=== PATIENT | male | born 1950 | race Caucasian/White ===

== ENCOUNTER → 2022-07-03 | Outpatient (CLI) | payer OTHER ==
--- NOTE | 2022-07-04 11:03 | MR ---
EXAMINATION TYPE: MR shoulder RT wo con DATE OF EXAM: 07/03/2022 COMPARISON: None HISTORY: Rt shoulder pain, Lifting with popping in shoulder last summer TECHNIQUE: Multiplanar, multisequence imaging of the right shoulder is performed without contrast. FINDINGS: There is severe hypertrophic arthropathy of the AC joint which results in impingement of th e supraspinatus tendon and muscle. There is cystic changes involving the glenoid with degenerative marrow changes. There appears to be l oss of articular cartilage along the glenoid component of the joint space and there is arthropathy of the inferior Grossly the glenohumeral ligament glenohumeral joint. There also appears to be a deform ity which appears chronic of the glenoid and superior humeral head correlate for prior Bankart lesion \Hill-Sachs deformity respectively and history of shoulder dislocation.. There is diffuse abnormal signal involving the superior labrum suspicious for SLAP tear. Abnormal sig nal extends into the biceps anchor. The bicipital tendon is well situated in the bicipital groove.. Suprascapular notch is a normal appea nik. Subscapularis tendon appears to be intact. Mild intrasubstance signal seen at the humeral attachment is suggestive of a tiny area of focal tendinosis. Supraspinatus and infraspinatus tendon demonstrates mild thickening and increased signal. There is i ntrasubstance undersurface signal seen overlying both the supraspinatus and infraspinatus tendon pura uring compatible with tendinopathy and intrasubstance tear.. IMPRESSION: 1. Severe AC joint arthropathy with impingement of the supraspinatus tendon and muscle. 2. Thickening and intrasubstance signal involving the distal margins of the supraspinatus and infrasp inatus tendons compatible with tendinopathy and intrasubstance tear. No through thickness tear or ret raction identified. 3. Findings are suggestive of a SLAP tear with abnormal signal extending into the biceps anchor corre late clinically. 4. Glenohumeral joint arthropathy with cystic changes and reactive marrow changes involving the gleno id. Subtle deformities of the glenoid and flattening of the humeral head suggest possibility of previ ous Hill-Sachs deformity and Bankart lesion. Correlate with history for prior shoulder dislocation. 5. Mild intrasubstance signal and thickening of the subscapularis insertion compatible with tendinopa thy
== END | disposition home or self-care (01) ==
LOC: RADMRIMAIN 14:29
PROVIDERS: ATTEND Physician Assistant
DX: M19.011 Primary osteoarthritis, right shoulder (principal); M25.811 Other specified joint disorders, right shoulder; M67.813 Other specified disorders of tendon, right shoulder

== ENCOUNTER 2022-08-22 07:33 | Day surgery (SDC) | payer OTHER ==
--- NOTE | 2022-08-21 08:19 | P.HPOR ---
History of Present Illness H&P Date: 08/21/22 Chief Complaint: Right shoulder pain The patient is a 71-year-old [id number] retired gentleman who presents with right shoulder pain that began a year ago after an injury. He is lifting a tire over his head when he felt a pop. He has had constant pain since. He's tried medications along with activity modifications with persistence of his symptoms. Review of Systems Negative except as in HPI Past Medical History Past Medical History: Diabetes Mellitus, Hyperlipidemia, Hypertension Medications and Allergies Home Medications and Allergies Comment(s): Metformin, aspirin, atorvastatin, lisinopril Physical Examination - Shoulder right Tenderness with palpation: anterior Pain: with abduction, with forward flexion ROM: forward flexion: 100 degrees (Actively and passively) ROM: internal rotation: lower lumbar ROM: external rotation: 30 degrees Crepitus with motion: Yes Strength: abduction: 4/5 Strength: external rotation: 5/5 Tests: internal impingement tests: positive, external impingment tests: positive Results The patient is well-developed well-nourished male approximately 5 foot 8, 163 pounds of mesomorphic habitus. HEENT exam is nonfocal, neck is supple. He's tender about the right shoulder anterior subacromial space. He has limited passive range of motion. Impingement, Neer tests are positive. His distal neurovascular appears intact in the right upper extremity. - Diagnostic results Shoulder MRI: image reviewed (MRI of the right shoulder shows evidence of rotator cuff tendinopathy along with a possible SLAP tear and Hill-Sachs lesion. Acromioclavicular joint arthritis is noted.) Assessment and Plan Assessment: Right shoulder impingement/rotator cuff tendinopathy Right proximal bicipital tendinosis/possible SLAP tear Right acromioclavicular joint arthritis Right shoulder adhesive capsulitis Plan: I talked to the patient with regarding his condition along with treatment options. This point he has is quite symptomatic despite attempted conservative measures. After thorough discussion of procedure surgery. We'll proceed with arthroscopic evaluation the right shoulder with probable subacromial de compression, rotator cuff debridement, possible biceps tenotomy along with manipulation under anesthesia. We will likely perform as an outpatient procedure. Risks and benefits were discussed at length in layman's terms. Patient underwent preoperative medical clearance.
[2022-08-21 10:06] VITALS: BMI 26.3
[2022-08-22] MEDS ORDERED: ONDANSETRON 4 MG/2 ML VIAL ONE (07:42)
[2022-08-22] MEDS ORDERED: LACTATED RINGERS 1,000 ML IV ONE ×2 (07:59→11:57)
[2022-08-22] MEDS ORDERED: DEXAMETHASONE SOD PHOSPHATE 4 MG/ML 1 ML VIAL IVP ONE (08:00)
[2022-08-22 08:26] LABS: Glucose,Whole Blood 103 mg/dL (70-110)
[2022-08-22] MEDS ORDERED: MIDAZOLAM 2 MG/2 ML VIAL IVP ONE (09:02)
[2022-08-22] MEDS ORDERED: fentaNYL (PF) 50 MCG/ML 2 ML AMP IVP ONE (09:02)
[2022-08-22] MEDS ORDERED: NEOSTIGMINE 1 MG/ML 10 ML VIAL ONE (09:43)
[2022-08-22] MEDS ORDERED: MIDAZOLAM 2 MG/2 ML VIAL ONE (09:43)
[2022-08-22] MEDS ORDERED: ePHEDrine 50 MG/ML 1 ML VIAL ONE (09:43)
[2022-08-22] MEDS ORDERED: fentaNYL (PF) 50 MCG/ML 2 ML AMP ONE (09:43)
[2022-08-22] MEDS ORDERED: GLYCOPYRROLATE 0.2 MG/ML 2 ML VIAL ONE (09:43)
[2022-08-22] MEDS ORDERED: PROPOFOL 10 MG/ML 20 ML VIAL IV ONE (09:43)
[2022-08-22] MEDS ORDERED: ROPIVACAINE 5 MG/ML 30 ML VIAL ONE (09:43)
[2022-08-22] MEDS ORDERED: PHENYLEPHRINE-0.9% NACL SYG 1,000 MCG/10 ML SYRINGE ONE (09:43)
[2022-08-22] MEDS ORDERED: ROCURONIUM 10 MG/ML (5 ML VIAL) IV ONE (09:43)
[2022-08-22] MEDS ORDERED: SUCCINYLCHOLINE CHLORIDE 200 MG/10 ML VIAL IV ONE (09:43)
[2022-08-22] MEDS ORDERED: LIDOCAINE 2% INJ 20 MG/ML (2 ML VIAL) ONE (09:43)
[2022-08-22] MEDS ORDERED: EPINEPHrine (PF) 1 ML in SODIUM CHLORIDE 0.9% IRRIGATIO 3,000 ML IRRIGATION ONE ×8 (10:17)
--- NOTE | 2022-08-22 10:40 | P.ANPRN ---
Procedure Note - Anesthesia - Nerve Block Performed Right Interscalene Single Time Out Performed: Yes (900) Date of Procedure: 08/22/22 Procedure Start Time: Procedure Stop Time: Location of Patient: PreOp Indication: Acute Post-Operative Pain, Requested by Surgeon Specifically requested for management of pain by : Kingsley Kennedy Sedation Type: Sedate with meaningful contact maintained Preparation: Sterile Prep Position: Supine Catheter: None Needle Types: Pajunk Needle Gauge: 21 Ultrasound used to visualize needle placement: Yes Ultrasound used to observe medication spread: Yes Injectate: 0.5% Ropivacaine (see comment for volume) (30cc) Blood Aspirated: No Pain Paresthesia on Injection Noted: No Resistance on Injection: Normal Image Stored and Saved: Yes Events: Uneventful and Well Tolerated
--- NOTE | 2022-08-22 10:56 | P.OP ---
Date of Procedure: 08/22/22 Preoperative Diagnosis: Right shoulder impingement/adhesive capsulitis/partial thickness rotator cuff tear Postoperative Diagnosis: Same in addition to synovitis right shoulder, acromioclavicular joint arthritis Procedure(s) Performed: Right shoulder arthroscopic subacromial decompression/synovectomy/distal clavicular resection/rotator cuff debridement Anesthesia: sadia HOWE Surgeon: Kingsley Kennedy Mower Sharpener #1: Emerson Humphrey Estimated Blood Loss (ml): 10 Pathology: none sent Condition: stable Disposition: PACU Indications for Procedure: The patient is a 71-year-old male presents with progressive right shoulder pain despite conservative measures. A discussion of the risks and benefits of operative intervention versus continued conservative measures was made with the patient. He opted to proceed with surgery. Operative risks to include infe ction, neurovascular injury, development of blood clots, possible incomplete resolution of symptoms, possible postoperative stiffness and possible need for subsequent procedures was discussed. Informed consent was obtained. Operative Findings: As below Description of Procedure: The patient was brought to the operating room, and after induction of general anesthesia was placed in a beachchair position. A preoperative interscalene block was placed for postoperative analgesia. I examined the right shoulder. There was significant block to passive motion. I gently manipulated the left shoulder first with the arm at the side obtaining full external rotation. Moderate adhesions were encountered. I then obtained full forward elevation. The right upper extremity was prepped and draped in normal fashion. The bony outlines the acromion, distal clavicle, and coracoid process were outlined with a skin marker. The glenohumeral joint was inflated with 50 mL of saline utilizing a spinal needle from posterior approach. A posterior portal was made through a 5 mm skin incision 1 cm medial and inferior to the posterior lateral border time. A blunt trocar was used to easily into the joint. Diagnostic arthroscopy was performed. An anterior portal was made just lateral to the coracoid process entering the joint above the subscapularis tendon. The subscapularis tendon appeared to be intact. Anterior labrum was intact. A grade 23 chondral defect was noted involving the posterior central portion of the humeral head. There was a loose chondral fragment debrided back to stable base with a motorized shaver. The inferior recess was inspected. The posterior labrum was intact. Marked synovitis involving the rotator interval was noted. This was debrided with a motorized shaver. The long head of the biceps was noted to be previously ruptured and absent. On inspection the rotator cuff, a partial thickness tear involving the anterior aspect the supraspinatus was noted involving proximal the 10% of the tendon thickness. This was debrided back to a stable base with a motorized shaver. The posterior aspect the rotator cuff appeared to be intact. The arthroscope was placed into the subacromial space. Marked bursitis was noted. A lateral portal was made 2 centimeters inferior to the anterior lateral border of the acromion. The soft tissue on the undersurface of the acromion was debrided with a motorized shaver and electrocautery clearly defining the anterior medial and lateral borders as well as the distal clavicle. An anterior inferior acromioplasty was performed with a motorized vikki starting anterolateral, then extending this posteriorly, then extending this medially. I converted to a flat acromion and this was verified in the posterior and lateral viewing portals. There was subacromial impingement secondary to arthritis involving the acromioclavicular joint. The distal 4 mm of the clavicle was resected with a motorized vikki. The bursal tissue was debrided with a motorized shaver. The rotator cuff appeared to be intact on the bursal surface. The arthroscope was then removed. The portals were closed with simple 3-0 nylon sutures. A sterile dressing was applied in addition to a sling. The patient was then awoken from general anesthesia and transferred to recovery room in good condition. Blood loss was estimated at 10 mL. No complications were incurred. Sponge and needle counts were correct in the case. Emerson COBB assisted and the major components of the case to include arm positioning, decompression, and distal clavicular resection.
[2022-08-22 11:04] VITALS: TEMP 97.4
[2022-08-22 11:57] VITALS: RESP 16
[2022-08-22 12:16] VITALS: BP 116/56; PULSE 72
== END 2022-08-22 13:00 | disposition home or self-care (01) ==
LOC: OR 07:33
PROVIDERS: ATTEND Orthopaedic Surgery
DX: M19.011 Primary osteoarthritis, right shoulder (principal); M75.111 Incomplete rotator cuff tear or rupture of right shoulder, not specified as traumatic; M75.41 Impingement syndrome of right shoulder; M65.811 Other synovitis and tenosynovitis, right shoulder; M75.51 Bursitis of right shoulder; M75.01 Adhesive capsulitis of right shoulder; G89.18 Other acute postprocedural pain; I10 Essential (primary) hypertension; E11.9 Type 2 diabetes mellitus without complications; E78.5 Hyperlipidemia, unspecified; Z79.82 Long term (current) use of aspirin; Z79.84 Long term (current) use of oral hypoglycemic drugs; Z79.899 Other long term (current) drug therapy
CPT/HCPCS: 29824; 29823; 29826; 64415; J2250; J0330; J1100; J2710; J0690; J2405; J0171; J3010; J2795; J2370; J2704; J2001